=== PATIENT | female | born 1965 | race Asian ===

== ENCOUNTER 2022-05-24 07:44 | Day surgery (SDC) | payer OTHER ==
[2022-05-17 15:48] VITALS: BMI 31.1
[2022-05-24] MEDS ORDERED: PROPOFOL 120 ML ONE (07:51)
[2022-05-24] MEDS ORDERED: LIDOCAINE HCL/PF 2% SDV 5ML VIAL ONE (07:51)
[2022-05-24 08:04] VITALS: RESP 18
[2022-05-24 09:13] VITALS: TEMP 96.9
[2022-05-24 09:33] VITALS: BP 97/50; PULSE 53
== END 2022-05-24 09:56 | disposition home or self-care (01) ==
LOC: FASU-ENDO 07:44
PROVIDERS: ATTEND Internal Medicine Gastroenterology
PROC: 0DBP8ZX Excision of Rectum, Via Natural or Artificial Opening Endoscopic, Diagnostic (ICD-10-PCS; principal; 2022-05-24 08:52)
DX: Z12.11 Encounter for screening for malignant neoplasm of colon (principal); D12.8 Benign neoplasm of rectum
CPT/HCPCS: 81025; 82962; 88305-TC